=== PATIENT | female | born 1950 | race Caucasian/White ===

== ENCOUNTER → 2016-11-13 | Outpatient (CLI) | payer MEDICAID | LOC: FIMAGING 10:15 | PROVIDERS: ATTEND Family Medicine | DX: Z12.39 Encounter for other screening for malignant neoplasm of breast (principal); N63 Unspecified lump in breast; E66.01 Morbid (severe) obesity due to excess calories; K21.9 Gastro-esophageal reflux disease without esophagitis; R73.02 Impaired glucose tolerance (oral); Z68.41 Body mass index [BMI] 40.0-44.9, adult | CPT/HCPCS: G0204 ==

== ENCOUNTER → 2017-08-03 | Outpatient (CLI) | payer MEDICAID | LOC: CIMAGING 12:30 | PROVIDERS: ATTEND Internal Medicine | DX: R05 Cough (principal); R09.89 Other specified symptoms and signs involving the circulatory and respiratory systems | CPT/HCPCS: 71046-PO ==

== ENCOUNTER → 2018-09-13 | Outpatient (CLI) | payer OTHER, MEDICAID | LOC: FIMAGING 15:11 | PROVIDERS: ATTEND Internal Medicine | DX: J40 Bronchitis, not specified as acute or chronic (principal) ==